=== PATIENT | female | born 1960 | race American Indian/Alaskan Native ===

== ENCOUNTER 2021-09-20 07:23 | Day surgery (SDC) | payer MEDICAID ==
[~2021-09-20 07:23] MED LIST: SODIUM CHLORIDE 0.9% 1000 ML 1,000 ML IV SCH
--- NOTE | 2021-09-20 08:17 | Anesthesia Consultation ---
Anesthesia Consult and Med Hx Date of service: 09/20/21 - Airway Anesthetic Teeth Evaluation: Poor ROM Head & Neck: Inadequate Mental/Hyoid Distance: Inadequate (pt contracted; does not follow commands; caregiver at bedside; unable to assess airway properly due to lack of participation from patient) Intubation Access Assessment: Possibly Difficult - Pulmonary Exam CTA: Yes - Cardiac Exam Cardiac Exam: RRR - Pre-Operative Health Status ASA Pre-Surgery Classification: ASA3 Proposed Anesthetic Plan: MAC - Pulmonary Hx Smoking: No Hx Asthma: No Hx Respiratory Symptoms: No SOB: No COPD: No Home Oxygen Therapy: No Hx Pneumonia: No Hx Sleep Apnea: No - Cardiovascular System Hx Hypertension: Yes Hx Coronary Artery Disease: No Hx Heart Attack/AMI: No Hx Angina: No Hx Percutaneous Transluminal Coronary Angioplasty (PTCA): No Hx Cardia Arrhythmia: No Hx Pacemaker: No Hx Internal Defibrillator: No Hx Valvular Heart Disease: No Hx Heart Murmur: No Hx Peripheral Vascular Disease: No - Central Nervous System Hx Neuromuscular Disorder: No Hx Seizures: Yes (1 year ago; on [place]) CVA: No Hx Back Pain: No Hx Psychiatric Problems: No - Gastrointestinal Hx Ulcer: No Hx Gastroesophageal Reflux Disease: No - Endocrine Hx Renal Disease: No Hx End Stage Renal Disease: No Hx Cirrhosis: No Hx Liver Disease: No Hx Insulin Dependent Diabetes: No Hx Non-Insulin Dependent Diabetes: No Hx Thyroid Disease: No Hx Hypothyroidism: Yes Hx Hyperthyroidism: No - Hematic Hx Anemia: No - Additional Comments Anesthesia Medical History Comments: mental delay; poor to follow commands; pt contracted;
--- NOTE | 2021-09-20 08:22 | Anesthesia Day of Surgery ---
Anesthesia Day of Surgery - Day of Surgery Patient Examined: Yes Patient H&P Reviewed: Yes Patient is NPO: Yes Beta Blockers: No Cardiac Clearance: No Pulmonary Clearance: No Kayode's Test: N/A
[2021-09-20] MEDS ORDERED: propofoL 200 MG/20 ML VIAL IV ONE (08:59)
--- NOTE | 2021-09-20 09:32 | Short Stay Summary ---
Short Stay Documentation Date of service: 09/20/21 Narrative H&P: The patient presents for EGD for PEG/tube replacement. She has a malfunctioning G tube of a small caliber requiring endoscopic replacement due to contraction of the stoma orifice not allowing external replacement in the office. - History Past Medical History: GERD, hypertension, seizures, other (mental retardation, insomnia) Past Surgical History: Other (prior gastrostomy) Social history: other (Lives in a personal half-way with a caregiver) - Allergies and Medications Current Medications: Allergies No Known Allergies Allergy (Unverified 09/13/21 18:17) Home Medications Medication Instructions Recorded Confirmed Last Taken Type Quetiapine Fumarate 400 mg PO HS 09/13/21 09/15/21 Unknown History Docusate Sodium-Senna Tablet 100 mg PO DAILY 09/15/21 09/15/21 Unknown History Famotidine 40 mg PO DAILY 09/15/21 09/15/21 Unknown History Jevity 1.2 Fareed Liquid 09/15/21 Unknown History LORazepam 1 mg PO TID 09/15/21 09/15/21 Unknown History Lansoprazole 3 mg FEEDTUBE DAILY 09/15/21 09/15/21 Unknown History Prevacid 30 mg PO DAILY 09/15/21 09/15/21 Unknown History Trazodone HCl 150 mg PO HS 09/15/21 09/15/21 Unknown History Valproic Acid 250 mg PO TID 09/15/21 09/15/21 Unknown History levETIRAcetam 1,000 mg FEEDTUBE DAILY 09/15/21 09/15/21 Unknown History Active Medications Sodium Chloride (Nacl 0.9% 1000 Ml) 1,000 mls @ 50 mls/hr IV DIRECT BETH - Physical exam General appearance: no acute distress, well-nourished, obese Integumentary: no rash, no growths, no abnormal pigmentation HEENT: Atraumatic, PERRLA, EOMI Lungs: Clear to auscultation, Normal air movement Breasts: deferred Heart: Regular rate, Normal S1, Normal S2, No murmurs Gastrointestinal: normoactive bowel sounds, no tenderness, no distended, no guarding, obese, other (G tube and gastrostomy in [facility]Q) Female Genitourinary: deferred Rectal Exam: deferred Extremities: no ischemia, pulses intact, pulses symmetrical, abnormal (flexion contractures of the lower extremities) Neurological: Other (Non ambulatory, no speech) - Brief post op/procedure progress note Date of procedure: 09/20/21 Findings: see dictation Estimated blood loss: none Pathology: none Condition: stable - Disposition Condition at discharge: Good Disposition: 01 HOME / SELF CARE / HOMELESS - Discharge Diagnoses (1) Malfunction of gastrostomy tube Status: Acute Short Stay Discharge Plan Activity: advance as tolerated Weight Bearing Status: Non-Weight Bearing Diet: other (tube feedings may start when back to personal half-way) Follow up with: KIMBER MARIE MD [Primary Care Provider] - 7 Days
--- NOTE | 2021-09-20 09:43 | Operative Report ---
Operative Report Operative Report: Date of procedure: 09/20/2021 Procedure: Percutaneous endoscopic gastrostomy Preprocedure diagnosis: Gastrostomy tube malfunction. Small caliber tube with malfunction. Inability to feed the patient. Contracted gastrostomy site necessitating endoscopic approach for replacement Post procedure diagnosis: Normal-appearing upper digestive tract. Gastrostomy replaced with a 20-gauge device Endoscopist: Dr. Marsh Anesthesia: Monitored anesthesia care per anesthesia department Medications: Propofol per anesthesia Estimated blood loss: 0 After careful discussion of the nature and purpose of the procedure as well as details the technique risks benefits and alternatives consent was obtained by giovanni gilbert from the patient's next of kin, her cousin, Shelly Bennett. The patient was placed in the left lateral decubitus position and medicated per anesthesia. The tip of the Medopad 570 video scope was passed per orum under direct vision into the esophagus and advanced into the stomach and descending duodenum. The descending duodenum the duodenal bulb and pylorus were symmetrical and normal. The scope was withdrawn into the stomach and the stomach then gently insufflated with air. The antrum was normal. The stomach was further insufflated and the scope was then retroflexed and partially withdrawn. The cardia, fundus, and body of the stomach were within normal limits and easily distensible.the old gastrostomy bumper was located on the anterior wall of the distal body. The external abdomen was prepared with Betadine. The balloon was deflated externally and the old gastrostomy tube removed by gentle traction. The guidewire was inserted percutaneously into the stomach then grasped with the snare. The guidewire was then withdrawn through the mouth using the scope. A new 20-gauge gastrostomy device was attached to the wire and pulled into place from the abdominal side of the wire, dilating the tract in the process. The bumper was applied with about 5 to 10 mm of slack externally. The procedure was well-tolerated overall the scope was then withdrawn in the forward position. A small hiatus hernia was noted. The esophageal body was normal throughout. The procedure was was well tolerated and the patient was observed in recovery. Impressions: Status post percutaneous endoscopic gastrostomy through an existing stoma. Plan: Replace tube in approximately 6 months. Electronically signed: Alex Marsh MD
[2021-09-20 13:18] VITALS: BP 119/82
--- NOTE | 2021-09-20 16:21 | Post Anesthesia Evaluation ---
- Post Anesthesia Evaluation Patient Participated: No Airway Patent: Yes Stable Respiratory Function: Yes Nausea/Vomiting: No Temp > 96.8F: Yes Pain Manageable: Yes Adequeate Hydration: Yes Anesthesia Complications: No Block Receding Appropriately: Not Applicable Patient on Ventilator: No
== END 2021-09-20 11:10 | disposition home or self-care (01) ==
LOC: GIO 07:23
PROVIDERS: ATTEND Internal Medicine Gastroenterology
DX: K94.23 Gastrostomy malfunction (principal); I10 Essential (primary) hypertension; E03.9 Hypothyroidism, unspecified; Z79.899 Other long term (current) drug therapy; Z98.890 Other specified postprocedural states
CPT/HCPCS: 43246; J2704; J7030